=== PATIENT | female | born 1955 | race Caucasian/White ===

== ENCOUNTER 2022-02-24 07:35 | Day surgery (SDC) | payer OTHER ==
[2022-02-24] VITALS (162 sets, daily range): BP systolic 89–196; BP diastolic 47–117
[~2022-02-24] VITALS: Ht 157.5 cm; Wt 68.0 kg
--- NOTE | 2022-02-24 06:59 | NUR ---
PT AMBULATORY TO FLOOR WITH IN ATTENDANCE. ORIENTED TO ROOM AND POC. CONSENTS SIGNED AND QUESTIONS ANSWERED. INITIATED LABS, EKG, IV. BED IN LOW POSITION AND CALL LIGHT WITHIN REACH.
[2022-02-24 07:39] LABS: HEMATOCRIT 47.1 % (37.0-47.0); HEMOGLOBIN 14.7 g/dl (12.0-16.0); IMMATURE GRANULOCYTES 0.1 % (0.0-5.0); MEAN CELL VOLUME 97.5 fL CALC (80.0-100.0); MEAN CORPUSCULAR HGB 30.4 pG CALC (26.0-32.0); MEAN CORPUSCULAR HGB CONC 31.2 g/dL CAL (32.0-36.0); NEUT# 6.51 thou/uL (2.00-7.15); RED BLOOD COUNT 4.83 mill/uL (4.20-5.60); RED CELL DISTRI WIDTH 14.3 % (11.5-15.5)
[2022-02-24 08:01] LABS: ALBUMIN 4.4 g/dL (3.2-5.0); ALKALINE PHOSPHATASE 87 u/l (38-126); ANION GAP 11 (6-22 (CALC)); BILIRUBIN, TOTAL 1.1 mg/dL (0.0-1.4); BUN 19 mg/dL (8-23); BUN/CREATININE RATIO 22 (12-20 (CALC)); CARBON DIOXIDE 29 mmol/l (22-30); CHLORIDE 105 mmol/l (95-108); CREATININE 0.8 mg/dL (0.5-1.0); GFR FOR AFR.AMER. > 60 ML/MIN (>=60 (CALC)); GFR OTHER RACES > 60 ML/MIN (>=60 (CALC)); POTASSIUM 3.9 mmol/l (3.5-5.1); SGOT/AST 39 u/l (9-36); SODIUM 140 mmol/l (137-146); TOTAL PROTEIN 7.5 g/dL (6.3-8.2)
--- NOTE | 2022-02-24 11:10 | NUR ---
DR THAKUR AT BEDSIDE
--- NOTE | 2022-02-24 11:38 | NUR ---
UPPER AND LOWER DENTURES REMOVED , PLACED IN DENTURE CUP AND LABELED AND LEFT AT BEDSIDE.
--- NOTE | 2022-02-24 11:50 | NUR ---
1154Induction Note Patient to [facility]R procedure room. Time out performed at 1154. Patient placed on monitors, Ty hugger, bilateral wrist restraints applied for ET tube protection. Versed 5mg given IV push at 1155 Tourniquet applied to LT arm Lidocaine 100mg given [id number] IV push followed by Rocoronium 10mg at 1156 IV push and held for 90 seconds. Propofol bolus of 150mg given at 1157 IV push. Succinylcholine 80mg given IV push at 1158. Smooth intubation with 7.5 ETT. Positive CO2. Positive Auscultation for air exchange. Patient placed on ventilator for spontaneous ventilation. Placed on Propofol IV drip at 1158. OG inserted. Positive air on auscultation. Positive gastric content. Stomach washed at this time. 1200 Naltrexone 50mg given via OG tube with Clonidine 0.3 mg given via OG Tube. OG clamped for 45 minutes. Will monitor patient for symptoms of withdrawal and adjust propfol accordingly.
--- NOTE | 2022-02-24 12:28 | NUR ---
ADMIN LABETOLOL 10MG IV FOR BP 177/99, HR 120
--- NOTE | 2022-02-24 12:39 | NUR ---
BP 172/93, HR 98, ADMINISTERED LABETOLOL 10MH IVP PER DR THAKUR
--- NOTE | 2022-02-24 12:45 | NUR ---
OG open note OG open at this time. Gastric content draining into drainage bag. OG to drain for 45 minutes. Propofol will be titrated down based on patient.
--- NOTE | 2022-02-24 13:01 | NUR ---
ADMINISTERED HYDRALAZINE 10MG IVP FOR BP 163/91, HR 101 PER V/O DR THAKUR
--- NOTE | 2022-02-24 13:30 | NUR ---
OG close note Stomach washed at this time. Naltrexone 50 mg with Clonidine 0.2 mg via OG tube. OG will be clamped for 45 minutes.
--- NOTE | 2022-02-24 15:15 | NUR ---
OG close note Stomach washed at this time. Naltrexone 12.5 mg with Clonidine 0.2 mg via OG tube. OG will be clamped for 45 minutes.
--- NOTE | 2022-02-24 16:06 | NUR ---
HYPOTENSION 99/58, HR 102. ADMINISTERED NEOSYNEPHERINE 1CC PER V/O DR THAKUR
--- NOTE | 2022-02-24 16:40 | NUR ---
STOMACH WASHED Closing medications given Benadryl 50mg IV push, Decadron 10mg IV push,Magnesium 4 grams IV, Zofran 8mg IV push,. KLONIPIN 2MG VIA OGT.
--- NOTE | 2022-02-24 17:20 | NUR ---
Extubation note Stomach washed out prior to extubation. Suctioned gastric content. OCTREOTIDE 100MG SC RT ABD.OG REMOVED Patient extubated. Propofol Discontinued. Wrist restraints removed. Ty hugger Removed. See ANR Moderate sedate recovery record for further notes and assessment.
--- NOTE | 2022-02-24 17:35 | NUR ---
TRANSPORTED TO [place] VIA STRETCHER, VSS. NAD, BEDSIDE REPORT TO LY MÁRQUEZ
--- NOTE | 2022-02-25 00:52 | NUR ---
PATIENT LAYING IN BED TURNING AND CHANGING POSITIONS OFTEN. REACHES OUT. ATTEMPTS TO GET OUT OF BED AT TIMES. REDIRECTED. PATIENT YELLS OUT PERIODICALLY. BED REMAINS IN LOW POSITION. BED ALARM ACTIVE FOR SAFETY PURPOSES.
[2022-02-25 03:48] VITALS: BP 159/77
--- NOTE | 2022-02-25 03:52 | NUR ---
PATIENT RESTING IN BED. APPEARS TO REACH ARMS OUT AT TIMES. CHANGES POSITION. NO SIGNS OF DISTRESS. NO COMPLAINTS OF PAIN. BED REMAINS IN LOW POSITION. BED ALARM ACTIVE.
[2022-02-25 05:52] LABS: HEMATOCRIT 41.5 % (37.0-47.0); HEMOGLOBIN 13.4 g/dl (12.0-16.0); IMMATURE GRANULOCYTES 0.1 % (0.0-5.0); MEAN CELL VOLUME 95.2 fL CALC (80.0-100.0); MEAN CORPUSCULAR HGB 30.7 pG CALC (26.0-32.0); MEAN CORPUSCULAR HGB CONC 32.3 g/dL CAL (32.0-36.0); NEUT# 7.22 thou/uL (2.00-7.15); RED BLOOD COUNT 4.36 mill/uL (4.20-5.60); RED CELL DISTRI WIDTH 14.4 % (11.5-15.5)
[2022-02-25 06:15] LABS: ALBUMIN 3.6 g/dL (3.2-5.0); ALKALINE PHOSPHATASE 67 u/l (38-126); ANION GAP 9 (6-22 (CALC)); BILIRUBIN, TOTAL 0.9 mg/dL (0.0-1.4); BUN 13 mg/dL (8-23); BUN/CREATININE RATIO 17 (12-20 (CALC)); CARBON DIOXIDE 26 mmol/l (22-30); CHLORIDE 104 mmol/l (95-108); CREATININE 0.8 mg/dL (0.5-1.0); GFR FOR AFR.AMER. > 60 ML/MIN (>=60 (CALC)); GFR OTHER RACES > 60 ML/MIN (>=60 (CALC)); MAGNESIUM 2.4 mg/dL (1.6-2.3); POTASSIUM 4.5 mmol/l (3.5-5.1); SGOT/AST 31 u/l (9-36); SODIUM 135 mmol/l (137-146)
[2022-02-25 06:19] LABS: TOTAL PROTEIN 5.8 g/dL (6.3-8.2)
--- NOTE | 2022-02-25 07:00 | NUR ---
PT SLEEPING UPON ENTRY. PATIENT IN CENTER OF BED. BREATHING NON LABORED AND EVEN. SKIN WARM, DRY AND INTACT. IV FLUIDS NOT RUNNING AT THIS TIME. NO SIGNS OF DISCOMFORT OR DISTRESS. CALL LIGHT IN REACH. BED SIDE RAILS X2 FOR SAFETY. BED IN LOWEST POSITION AND WHEELS LOCKED.
[2022-02-25 07:53] VITALS: BP 160/102
[2022-02-25 09:10] VITALS: BP 151/81
--- NOTE | 2022-02-25 09:56 | NUR ---
Pneumonia post discharge follow up call completed today, 02/25/22. Pt states he is doing very well. He states his breathing is better than it has been is some time. Pt. is taking prescribed medication without issue. He is attempting to arrange for a follow up appt but has been unsucessful so far. He will continue to contact them and stay in communication. Pt. has no needs or concerns at this time.
--- NOTE | 2022-02-25 16:12 | NUR ---
PT RESTING IN BED AT THIS TIME. NO SIGNS OF DISTRESS OR DISCOMFORT.SKIN IS WARM, DRY ADN INTACT. BREATHING IS EVEN AND UNLABORED. PATIENT IN HIGH FOWLERS POSITION COVERED BY BLANKETS. PATIENT UNDERSTANDS SPEECH AND DIRECTION GIVEN BUT IS STILL SLIGHTLY CONFUSED. PT IS NOT RECIEVING OXYGEN OR IV FLUIDS AT THIS TIME. CALL LIGHT AND BED SIDE TABLE WITHIN REACH. BED IN LOWEST POSITION WITH BED ALARM AND WHEELS LOCKED FOR PATIENT SAFETY.
--- NOTE | 2022-02-25 17:08 | NUR ---
PATIENT SLEEPING IN CENTER OF BED. BREATHING IS NONLBORED AND EVEN. NO SIGNS OF DISCOMFORT OR DISTRESS. PT DORWSY AND CANNOT WEAR DENTURES. PT IS NOT ABLE TO PUT DENTURES INDEPENDTLY AND ASKED FOR THEM. AND WONT ALLOW ME TO ASSIST HER IN PUTTING THEM IN. CALL LIGHT IN REACH. BED IN LOWEST POSITION WITH WHEELS LOCKED.
[2022-02-25 19:09] VITALS: BP 162/73
--- NOTE | 2022-02-25 19:55 | NUR ---
PATIENT RESTING IN BED WITH EYES CLOSED. NO SIGNS OF DISTRESS. ABLE TO MAKE NEEDS KNOWN. BED REMAINS IN LOW POSITION WITH BED ALARM ACTIVE.
[2022-02-26] VITALS: BP 162/72
--- NOTE | 2022-02-26 00:45 | NUR ---
PATIENT RESTING IN BED. PERIODICALLY CHANGES POSITION AND TALKS WHILE POINTING AT THE CEILING. PATIENT REDIRECTED WITH IMPROVEMENT. BED REMAINS IN LOW POSITION WITH BED ALARM ACTIVE.
--- NOTE | 2022-02-26 03:00 | NUR ---
PATIENT RECEIVED PRN TYLENOL PER EMAR DUE TO COMPLAINTS OF PAIN. PATIENT TOLERATED MEDICATION WELL.
[2022-02-26 03:49] VITALS: BP 151/74
--- NOTE | 2022-02-26 04:56 | NUR ---
PATIENT RESTING IN BED. NO SIGNS OF DISTRESS NOTED. BED REMAINS IN LOW POSITION. BED ALARM ACTIVE. WILL CONTINUE TO MONITOR PATIENT. CUST[employer]S PORT DIRECTOR REMAINS NEAR PATIENTS DOOR IN HER VIEW FOR SAFETY REASONS.
--- NOTE | 2022-02-26 07:16 | NUR ---
RECEIVE REPORT FROM TRISTON MODI
--- NOTE | 2022-02-26 08:00 | NUR ---
PATIENT RESTING IN THE BED. STABLE AT THIS TIME. DOES NOT RESPIRATORY DISTRESS. FALL AND SAFETY PRECAUTIONS IN PLACE. CALL LIGHT WITHIN REACH.
--- NOTE | 2022-02-26 09:53 | NUR ---
PATIENT IS DISCHARGED STABLE.
== END 2022-02-26 09:45 | disposition home or self-care (01) | DRG 897 ==
LOC: ANR 07:35 → MS2 07:36 → ANR 08:00
PROVIDERS: ATTEND Anesthesiology
DX: F11.20 Opioid dependence, uncomplicated (principal)
CPT/HCPCS: J2354